=== PATIENT | female | born 1995 | race Caucasian/White ===

== ENCOUNTER 2019-06-18 14:42 | Emergency (ER) | payer MEDICAID ==
--- NOTE | 2019-06-18 14:56 | ED ---
Lower Extremity - HPI Summary HPI Summary: 23 yo female presents with RIGHT knee injury. She tells me that she was playing rugby and someone tackled her from the side and impacted her right lateral knee. Pt heard a pop and had immediate pain. She was able to ambulate, but had significant pain and feels her knee is going to give out. She took some ibuprofen and elevated her leg and pain has improved, but still very painful to weight bear. No previous surgeries to this knee. Denies numbness or tingling. - History of Current Complaint Chief Complaint: EDExtremityLower Stated Complaint: RT KNEE INJ PER PT Time Seen by Provider: 06/18/19 14:55 Hx Obtained From: Patient Mechanism Of Injury: Direct Blow Severity Initially: Moderate Severity Currently: Moderate Pain Intensity: 7 Pain Scale Used: 0-10 Numeric - Allergies/Home Medications Allergies/Adverse Reactions: Allergies Allergy/AdvReac Type Severity Reaction Status Date / Time amoxicillin Allergy Rash Verified 06/18/19 14:48 Sulfa (Sulfonamide Allergy Swelling Verified 06/18/19 14:48 Antibiotics) Of Face,Lips,& Throat PMH/Surg Hx/FS Hx/Imm Hx Endocrine/Hematology History: Denies: Hx Diabetes Cardiovascular History: Denies: Hx Congestive Heart Failure, Hx Hypertension Respiratory History: Denies: Hx Asthma, Hx Chronic Obstructive Pulmonary Disease (COPD) Neurological History: Denies: Hx CVA, Hx Migraine Psychiatric History: Denies: Hx Anxiety, Hx Depression - Surgical History Surgical History: None - Immunization History Immunizations Up to Date: Yes Infectious Disease History: No Infectious Disease History: Denies: Traveled Outside the [place] in Last 30 Days - Social History Occupation: Student Lives: With Family Alcohol Use: Occasionally Substance Use Type: Reports: None Smoking Status (MU): Never Smoked Tobacco Review of Systems Constitutional: Negative Cardiovascular: Negative Respiratory: Negative Musculoskeletal: Other - Right knee pain Skin: Negative Neurological: Negative Psychological: Normal All Other Systems Reviewed And Are Negative: No Physical Exam - Summary Physical Exam Summary: GENERAL: NAD. WDWN. No pain distress. SKIN: No rashes, sores, lesions, or open wounds. CHEST: No accessory muscle use. Breathing comfortably and in no distress. CV: Pulses intact popliteal, PT, and DP. Cap refill <2seconds MSK: FROM. NTTP. Mild increased laxity with valgus stress. Mild edema. Strength 5/5. No patella apprehension. Negative Arjun, A/P drawer, Danny NEURO: Alert. Sensations intact and symmetric B/L LEs PSYCH: Age appropriate behavior. Triage Information Reviewed: Yes Vital Signs On Initial Exam: Initial Vitals Temp Pulse Resp BP Pulse Ox 98.1 F 99 16 128/90 100 06/18/19 14:43 06/18/19 14:43 06/18/19 14:43 06/18/19 14:43 06/18/19 14:43 Vital Signs Reviewed: Yes Diagnostics - Vital Signs Vital Signs Temp Pulse Resp BP Pulse Ox 06/18/19 14:43 98.1 F 99 16 128/90 100 - Laboratory Lab Statement: Any lab studies that have been ordered have been reviewed, and results considered in the medical decision making process. - Radiology XR knee Radiology Interpretation Completed By: Radiologist Summary of Radiographic Findings: IMPRESSION: NO EVIDENCE FOR FRACTURE. Lower Extremity Course/Dx - Course Course Of Treatment: Discussed results with pt. Given her OLU and mild increased laxity on exam at medial compartment I am most concerned for ligament or meniscus involvement, therefore she was placed in a knee immobilizer and provided with crutches to use. Advised to f/u with Orthopedics next week for a recheck - Diagnoses Provider Diagnoses: Knee injury Discharge ED - Sign-Out/Discharge Documenting (check all that apply): Patient Departure Patient Received Moderate/Deep Sedation with Procedure: No - Discharge Plan Condition: Stable Disposition: HOME Patient Education Materials: Knee Pain (ED), Knee Immobilizer (ED) Referrals: Maged Mcarthur MD [Medical Doctor] - As Soon As Possible Additional Instructions: If you develop a fever, shortness of breath, chest pain, new or worsening symptoms - please call your PCP or go to the ED immediately. 1) Rest, Ice, and elevate your knee intermittently throughout the day to reduce pain and swelling 2) May take tylenol/ibuprofen as directed for discomfort. Use the knee immobilizer and crutches for comfort 3) Given the mechanism of your injury and your exam today, I recommend that you call Orthopedics at the number below to schedule an appointment next week for a recheck - Billing Disposition and Condition Condition: STABLE Disposition: Home - Attestation Statements Provider Attestation: I was available for consultation for this patient. I did not evaluate the patient or participate in any medical decision making or disposition decisions unless I am specifically named in the chart as having consulted on the patient. If I have consulted on the patient, please see my own ED note on the patient encounter. Allegra Kessler MD
[2019-06-18 16:26] VITALS: BP 113/79
== END 2019-06-18 16:26 | disposition home or self-care (01) ==
LOC: ED 14:42
DX: S89.91XA Unspecified injury of right lower leg, initial encounter (principal); W50.0XXA Accidental hit or strike by another person, initial encounter; Y93.63 Activity, rugby; Y92.9 Unspecified place or not applicable; Z88.0 Allergy status to penicillin; Z88.2 Allergy status to sulfonamides
CPT/HCPCS: 99282